=== PATIENT | female | born 1980 | race Two or more races ===

== ENCOUNTER 2023-11-01 08:44 | Inpatient (IN) | payer BC ==
[2023-10-30 14:10] LABS: Basophils # (auto) 0 10 ^3/uL (0-0.2); Basophils % (auto) 0.6 % (0.0-2.0); Eosinophils # (auto) 0.2 10 ^3/uL (0-0.8); Eosinophils % (auto) 2.2 % (0.0-7.0); Hematocrit 44.8 % (36.0-46.0); Hemoglobin 14.9 g/dL (12.2-16.2); Mean Corpuscular Hemoglobin 29.7 pg (28.0-32.0); Mean Corpuscular Hgb Conc. 33.2 g/dL (32.0-36.0); Mean Corpuscular Volume 89.4 fL (80.0-100.0); Monocytes # (auto) 0.5 10 ^3/uL (0-1.3); Monocytes % (auto) 6.8 % (0.0-12.0); Neutrophils # (auto) 4.5 10 ^3/uL (1.6-8.6); Neutrophils % (auto) 62.4 % (37.0-80.0); Nucleated Red Blood Cells % 0.2 %; Red Blood Cells 5.01 10^6/uL (4.0-5.20); White Blood Cell 7.2 10^3/uL (4.4-10.8)
[2023-10-30 14:36] LABS: INR 1.04 (0.9-1.15); Prothrombin Time 10.9 sec (9.3-11.8)
[2023-10-30 14:52] LABS: Urine Bacteria FEW /hpf (None Seen); Urine Blood 1+ /uL (Negative); Urine Clarity Clear (Clear); Urine Color Yellow (Yellow); Urine Mucus FEW (None Seen); Urine Protein, UAD TRACE (Negative); Urine Specific Gravity 1.023 (1.001-1.035); Urine Urobilinogen 2 mg/dL (Negative); Urine WBC 3 /hpf (0 - 5)
[2023-10-30 15:00] LABS: Alanine Aminotransferase 95 U/L (7-40); Albumin 4.4 g/dL (3.2-4.8); Alkaline Phosphatase 91 U/L (46-116); Anion Gap 4 (5-15); Aspartate Aminotransferase 83 U/L (13-40); BUN/Creatinine Ratio 10.8 (10.0-20.0); Bilirubin, Total 1.2 mg/dL (0.2-1.0); Blood Urea Nitrogen 7 mg/dL (9-23); Calcium 9.4 mg/dL (8.5-10.1); Carbon Dioxide 29 mmol/L (20-30); Chloride 107 mmol/L (98-107); Glucose 103 mg/dL (74-106); Potassium 4.1 mmol/L (3.5-5.1); Sodium 140 mmol/L (136-145); Total Protein 7.7 g/dL (5.7-8.2)
[~2023-11-01] VITALS: Ht 154.9 cm; Wt 75.4 kg
[~2023-11-01 08:44] MED LIST: DULO30CA PO; HYDR-4072 PO
[2023-11-01] MEDS: VANCOMYCIN HCL 1000 MG VL ONE (10:47)
[2023-11-01] MEDS ORDERED: PROPOFOL 10 MG/ML 20 ML IV ONE ×2 (10:51→13:36)
[2023-11-01] MEDS ORDERED: fentaNYL CITRATE 100 MCG/2 ML VL ONE ×2 (10:51→13:34)
[2023-11-01] MEDS: SUCCINYLCHOLINE CHLORIDE 20 MG/ML 10ML VIAL IV ONE (11:22)
[2023-11-01] MEDS: levoFLOXacin 750MG 150 ML IV ONE (11:45)
[2023-11-01] MEDS ORDERED: TRANEXAMIC ACID 20 ML ONE (11:55)
[2023-11-01] MEDS ORDERED: DexAMETHasone SOD PHOS 10MG/1ML VIAL INJ ONE (12:21)
[2023-11-01] MEDS ORDERED: ONDANSETRON HCL 4 MG/2 ML VIAL ONE (12:21)
[2023-11-01] MEDS ORDERED: MEPERIDINE HCL (50 MG/ML) 1 ML VIAL ONE ×2 (12:24→13:06)
[2023-11-01] MEDS ORDERED: THROAT LOZENGES(CEPASTAT) MT PRN (12:45)
[2023-11-01] MEDS ORDERED: LABETALOL HCL 5 MG/ML ML 20ML VIAL IV ONE (12:47)
[2023-11-01] MEDS: LIDOCAINE W/ EPINEPHRINE 1% 20ML VIAL ONE (12:51)
[2023-11-01] MEDS ORDERED: SUGAMMADEX 200mg/2ml Vial (100MG/ML) IV ONE (13:52)
[2023-11-01] MEDS ORDERED: MEPERIDINE HCL (25 MG/ML) 1ML VIAL ONE (14:12)
[2023-11-01] MEDS ORDERED: ONDANSETRON HCL 4 MG/2 ML VIAL IV PRN (14:15)
[2023-11-01] MEDS ORDERED: NITROGLYCERIN 0.4 MG SL TAB SL PRN (14:15)
[2023-11-01] MEDS ORDERED: MORPHINE SULFATE INJ 2 MG/ml SYRG IV PRN (14:15)
[2023-11-01] MEDS ORDERED: ACETAMINOPHEN 325 MG TAB PO PRN (14:15)
[2023-11-01] MEDS ORDERED: MEPERIDINE HCL (25 MG/ML) 1ML VIAL IV PRN (14:45)
[2023-11-01] MEDS: ONDANSETRON HCL 4 MG/2 ML VIAL IV ONE (14:45)
[2023-11-01] MEDS: HYDROmorphone HCL 2 MG/ML VL/or syr ONE (15:10)
[2023-11-01] MEDS: HYDROmorphone HCL 2 MG/ML VL/or syr IV PRN (15:11)
[2023-11-01 16:50] VITALS: BP 113/63; PULSE 78; RESP 16; TEMP 97.6; O2SAT 97
[2023-11-01] MEDS: MORPHINE SULFATE INJ 2 MG/ml SYRG IV PRN (17:04)
[2023-11-01 17:09] VITALS: BP 113/63; PULSE 78; RESP 16; TEMP 97.6; O2SAT 97
[2023-11-01] MEDS: D5W/SOD CHLO 0.9% 1,000 ML IV SCH (18:02)
[2023-11-01 18:11] VITALS: PULSE 89
[2023-11-01] MEDS: HYDROcodone-ACET 10/325MG TAB PO PRN (18:23)
[2023-11-01 20:20] VITALS: BP 113/62; PULSE 70; PULSE 75; RESP 18; TEMP 97.8
[2023-11-01 21:00] VITALS: BP 113/62; PULSE 70; RESP 18; TEMP 97.8; O2SAT 98
[2023-11-01] MEDS: CYCLOBENZAPRINE HCL 10 MG TAB PO SCH (21:34)
[2023-11-01] MEDS: DOCUSATE SOD 100 MG CAP PO SCH (21:35)
[2023-11-02] VITALS (9 sets, daily range): BP systolic 110–127; BP diastolic 60–73; PULSE 67–77; RESP 16–19; TEMP 97.7–99; O2SAT 96–99
[2023-11-02] MEDS: MELATONIN 5 MG TAB PO ONE (01:18)
[2023-11-02] MEDS: DULoxetine HCL 30 MG CAP PO SCH (09:44)
[2023-11-02] MEDS: VANCOMYCIN 1GM/200ML 200 ML IV SCH (21:52)
[2023-11-03] VITALS (9 sets, daily range): BP systolic 119–138; BP diastolic 47–81; PULSE 60–94; RESP 15–20; TEMP 97.9–98.7; O2SAT 96–98
[2023-11-03 09:41] LABS: Alanine Aminotransferase 81 U/L (7-40); Albumin 3.7 g/dL (3.2-4.8); Alkaline Phosphatase 69 U/L (46-116); Anion Gap 8 (5-15); Aspartate Aminotransferase 75 U/L (13-40); BUN/Creatinine Ratio 14.8 (10.0-20.0); Blood Urea Nitrogen 8 mg/dL (9-23); Calcium 8.5 mg/dL (8.5-10.1); Carbon Dioxide 23 mmol/L (20-30); Chloride 109 mmol/L (98-107); Glucose 132 mg/dL (74-106); Potassium 3.7 mmol/L (3.5-5.1); Sodium 140 mmol/L (136-145)
[2023-11-03 09:42] LABS: Bilirubin, Total 0.8 mg/dL (0.2-1.0)
[2023-11-04 01:00] VITALS: BP 115/67; PULSE 74; RESP 20; TEMP 99.7; O2SAT 97
[2023-11-04 05:00] VITALS: BP 125/68; PULSE 83; RESP 20; TEMP 98.8; O2SAT 98
[2023-11-04 08:00] VITALS: PULSE 81
[2023-11-04 09:19] VITALS: BP 121/71; PULSE 75; RESP 20; TEMP 98.5; O2SAT 97
== END 2023-11-04 12:40 | disposition home health service (06) | DRG 460 ==
LOC: SUR 08:44 → TELE 14:03 → TELE-CENTR 17:12
PROVIDERS: ADMIT Orthopaedic Surgery; ATTEND Internal Medicine
PROC: 01NB0ZZ Release Lumbar Nerve, Open Approach (ICD-10-PCS; 2023-11-01)
PROC: 00NY0ZZ Release Lumbar Spinal Cord, Open Approach (ICD-10-PCS; 2023-11-01)
PROC: 4A11X4G Monitoring of Peripheral Nervous Electrical Activity, Intraoperative, External Approach (ICD-10-PCS; 2023-11-01)
PROC: 0SG00AJ Fusion of Lumbar Vertebral Joint with Interbody Fusion Device, Posterior Approach, Anterior Column, Open Approach (ICD-10-PCS; principal; 2023-11-01 11:52)
DX: M48.062 Spinal stenosis, lumbar region with neurogenic claudication (principal); M43.16 Spondylolisthesis, lumbar region; M51.16 Intervertebral disc disorders with radiculopathy, lumbar region; Z88.0 Allergy status to penicillin
CPT/HCPCS: 36415; 72100; 76000; 80053; 81001; 81025; 84702; 85025; 85610; 85730; 86850; 86870; 86900; 86901; 86902; 97110; 97116; 97163; 97530; G0378; J0330; J1100; J2405; J2704; J7042